=== PATIENT | female | born 1980 | race Caucasian/White ===

== ENCOUNTER → 2016-08-27 | Outpatient (CLI) | payer OTHER | LOC: MW.CHOBGYN 09:12 | PROVIDERS: ATTEND Obstetrics & Gynecology | DX: N97.0 Female infertility associated with anovulation (principal) | CPT/HCPCS: 36415; 81025; 84144 ==

== ENCOUNTER → 2016-09-20 | Outpatient (CLI) | payer BC, OTHER | LOC: MW.CHOBGYN 09:48 | PROVIDERS: ATTEND Obstetrics & Gynecology | DX: N97.0 Female infertility associated with anovulation (principal) | CPT/HCPCS: 36415; 84144; 84702 ==

== ENCOUNTER → 2016-09-23 | Outpatient (CLI) | payer OTHER | LOC: MW.CHOBGYN 12:10 | PROVIDERS: ATTEND Obstetrics & Gynecology | DX: N97.0 Female infertility associated with anovulation (principal) | CPT/HCPCS: 36415; 84702 ==